=== PATIENT | female | born 1985 | race African-American/Black ===

== ENCOUNTER 2021-04-30 01:53 | Emergency (ER) | payer OTHER ==
[2021-04-30 02:08] VITALS: TEMP 98.5; BMI 28.9
[2021-04-30] MEDS ORDERED: KETOROLAC TROMETHAMINE 30 MG/1 ML VIAL IVPUSH ONE (02:29)
[2021-04-30] MEDS ORDERED: KETOROLAC TROMETHAMINE 30 MG/1 ML VIAL ONE (02:47)
[2021-04-30 03:01] LABS: BASO % 0.8 % (0-2.0); EOS % 1.9 % (0-4.5); HEMATOCRIT 35.5 % (32.4-45.2); HEMOGLOBIN 12.5 GM/dL (10.7-15.3); MCH 30.8 pg (25.7-33.7); MEAN PLT VOLUME 7.7 fl (7.5-11.1); MONO % 9.9 % (3.8-10.2); NEUT % 52.4 % (42.8-82.8); PLATELET COUNT 333 10^3/uL (134-434); RBC 4.04 M/mm3 (3.60-5.2); RDW 12.9 % (11.6-15.6); WHITE BLOOD COUNT 8.5 K/mm3 (4.0-10.0)
[2021-04-30 03:18] LABS: CHLORIDE 107 mmol/L (98-107); SODIUM 138 mmol/L (136-145)
[2021-04-30 03:21] LABS: ALBUMIN 3.6 g/dl (3.4-5.0); ANION GAP 7 MMOL/L (8-16); BLOOD UREA NITROGEN 14.2 mg/dL (7-18); CO2 25 mmol/L (21-32); GLUCOSE,RANDOM 96 mg/dL (74-106)
[2021-04-30 03:24] LABS: CREATININE 0.9 mg/dL (0.55-1.3); SGOT/AST 14 U/L (15-37); SGPT/ALT 26 U/L (13-61)
[2021-04-30 03:26] LABS: BILIRUBIN,TOTAL 0.6 mg/dL (0.2-1); TOT PROT 7.7 g/dl (6.4-8.2)
[2021-04-30 03:27] LABS: ALK PHOS 48 U/L (45-117)
[2021-04-30 05:26] VITALS: BP 114/84; PULSE 83
== END 2021-04-30 05:26 | disposition home or self-care (01) ==
LOC: JER 01:53
PROC: 3E033GC Introduction of Other Therapeutic Substance into Peripheral Vein, Percutaneous Approach (ICD-10-PCS; principal; 2021-04-30)
DX: R07.89 Other chest pain (principal)
CPT/HCPCS: 36415; 71045-TC-FY; 80053; 84484; 84703; 85025; 93005; 93010; 99285-25